=== PATIENT | female | born 1965 | race Asian ===

== ENCOUNTER → 2023-05-12 10:40 | Outpatient (REF) | payer BC, SELFPAY | LOC: HWRAD 10:40 | PROVIDERS: ATTENDING PHYSICIAN Physician Assistant Medical | DX: N89.8 Other specified noninflammatory disorders of vagina (principal); N94.9 Unspecified condition associated with female genital organs and menstrual cycle | CPT/HCPCS: 76830; 76856 ==

== ENCOUNTER → 2023-05-16 11:23 | Outpatient (REF) | payer BC, SELFPAY | LOC: RAD 11:23 | PROVIDERS: ATTENDING PHYSICIAN Physician Assistant Medical | DX: N94.89 Other specified conditions associated with female genital organs and menstrual cycle (principal) | CPT/HCPCS: 58340; 76831 ==

== ENCOUNTER → 2023-07-30 17:36 | Outpatient (REF) | payer BC, SELFPAY | LOC: CLAB 17:36 | PROVIDERS: ATTENDING PHYSICIAN Obstetrics & Gynecology | DX: N84.0 Polyp of corpus uteri (principal) | CPT/HCPCS: 88305 ==

== ENCOUNTER → 2023-12-17 19:15 | Outpatient (REF) | payer BC, SELFPAY | LOC: WDC 19:15 | PROVIDERS: ATTENDING PHYSICIAN Physician Assistant Medical | DX: Z12.31 Encounter for screening mammogram for malignant neoplasm of breast (principal) | CPT/HCPCS: 77063; 77067 ==

== ENCOUNTER → 2024-02-26 12:56 | Outpatient (REF) | payer BC, SELFPAY | LOC: WDC 12:56 | PROVIDERS: ATTENDING PHYSICIAN Physician Assistant Medical; FAMILY PHYSICIAN Physician Assistant Medical | DX: R92.2 Inconclusive mammogram (principal) | CPT/HCPCS: 76641 ==

== ENCOUNTER 2024-02-29 10:44 | Emergency (ER) | payer BC, SELFPAY ==
[2024-02-29 10:49] VITALS: BP 154/74
[2024-02-29 11:55] VITALS: BMI 25.8
--- NOTE | 2024-02-29 12:09 | ED.GENMED ---
History of Present Illness
General
Chief Complaint: Rabies
Source: patient
Exam Limitations: none
Time Seen by Provider: 02/29/24 11:32
Nursing documentation reviewed up to this point in time: agreed with
History of Present Illness
History of Present Illness:
58-year-old female presenting to the emergency department today with concerns of a bat flying in her room last night unsure of any particular injuries. Not sure if she could get bit on the finger she does have small discomfort to the area but no
visible bleeding or significant injury there. Denies additional concerns. Patient seeking rabies vaccination.
Past History
Past History
ED Past Medical History: None
ED Past Surgical History: None
Review of Systems
Review of Systems
Allergies reviewed?: Yes
All Other Systems: ROS reviewed and negative except as documented in HPI and ROS
Phy Exam
Physical Exam
Physical Exam:
GENERAL: Alert , in no apparent distress
EYE: pupils equal and reactive
NECK: Supple, no significant adenopathy.
ENT: o/p clr, mmm.
CARDIAC: Regular rate and rhythm .
LUNGS: Clear breath sounds bilaterally, no acute respiratory distress, no wheezes/rales/rhonchi
ABDOMEN: Soft, without focal tenderness, no r/g, no cvat
NEUROLOGICAL: Alert and oriented, no focal neuro deficits
SKIN: Warm and dry, skin intact.
MUSCULOSKELETAL: No edema, well perfused.
PSYCH: Normal and appropriate interaction.
Course
Orders/Labs/Results
Orders:
Orders
02/29/24 12:05
Rabies Immune Globulin/Pf [HyperRAB] 1,361 unit IM NOW STA
Rabies Vaccine (Pcec)/Pf [Rabavert Rabies Vacc W-Diluent] 2.5 unit IM .ONCE ONE
Vital Signs
Initial and Last Documented VS:
Initial Vital Signs
Temp Pulse Resp BP Pulse Ox
97.8 F 67 16 154/74 100
02/29/24 10:49 02/29/24 10:49 02/29/24 10:49 02/29/24 10:49 02/29/24 10:49
Last Documented Vital Signs
Temp Pulse Resp BP Pulse Ox
97.8 F 67 16 154/74 100
02/29/24 10:49 02/29/24 10:49 02/29/24 10:49 02/29/24 10:49 02/29/24 10:49
MDM/Problems Addressed
MDM/Problems Addressed:
58-year-old female presenting to the emergency department after seeing a bat flying in her room last night. Unsure of any particular injuries from the back. She is seeking rabies vaccination at this point. She was given a immunoglobulin and
vaccination and also follow-up. Return precautions given.
*Critical Care Note
Total Time (30-74mins, 75-104mins- exclusive of procedures): Not Applicable
ED Attending Note
-
Portions of this chart may have been created with voice recognition software.� Occasional wrong word or��sound alike� substitutions may have occurred due to the inherent limitations of voice recognition software.
Discharge Plan
Departure
Patient Disposition: Home (Routine Discharge)
Date of Disposition: 02/29/24
Time of Disposition: 12:11
Patient with high blood pressure during this ER visit?: No
Condition: Good
Covid-19: Not Applicable
Discharge Problem:
Exposure to bat without known bite
Instructions: Rabies
Prescriptions:
New
RabAvert (PF) 2.5 unit Suspension For Reconstitution
1 ml IM . DIRECTED Qty: 3 0RF
Rx Instructions:
See Rabies Vaccine Post Exposure Prophylaxis Instruction Sheet for Dosing Instructions
No Action
amoxicillin-pot clavulanate 875 MG/125 MG tablet
1 tab PO Q12 Qty: 19 0RF
Referrals:
Lourdes Clark PA-C [Family Provider] -
Stand Alone Forms: Rabies Vaccine Post Exp Dosing
Activity Restrictions/Additional Instructions:
You came to the emergency department after bat exposure. You are given the rabies vaccination and immunoglobulin. Please follow-up at the specified dates for additional vaccinations in the infusion center. Return to the emergency department for
any worsening, new or concerning symptoms.
Interventions
Interventions:
*Risk Screen - Suicide Last Done: 02/29/24 10:49
*General Assessment Last Done: 02/29/24 10:49
*Neglect/Abuse Screening Last Done: 02/29/24 10:49
*ED COVID-19 Vaccine History Last Done: 02/29/24 10:49
Discharge Date and Time
Print Language: UGANDAN
[2024-02-29] MEDS: HyperRAB 1361 UNIT IM (12:39)
[2024-02-29] MEDS: RABAVERT RABIES VACC W-DILUENT 2.5 UNIT IM (12:39)
== END 2024-02-29 12:48 | disposition home or self-care (01) ==
LOC: EMR 10:44
PROVIDERS: EMERGENCY PHYSICIAN Emergency Medicine; FAMILY PHYSICIAN Physician Assistant Medical
DX: Z20.3 Contact with and (suspected) exposure to rabies (principal); Z23 Encounter for immunization; Z29.14 Encounter for prophylactic rabies immune globulin
CPT/HCPCS: 99282; 90471; 96372; 90375; 90675

== ENCOUNTER 2024-03-08 07:41 | Outpatient (RCR) | payer BC, SELFPAY ==
[2024-03-04 07:45] VITALS: BP 122/71
[2024-03-04] MEDS: RABAVERT RABIES VACC W-DILUENT 2.5 UNIT IM (07:55)
[2024-03-08 07:55] VITALS: BP 116/61
[2024-03-08] MEDS: RABAVERT RABIES VACC W-DILUENT 2.5 UNIT IM (08:06)
== END 2024-03-09 08:21 | disposition home or self-care (01) ==
LOC: OID 07:41
PROVIDERS: ATTENDING PHYSICIAN Emergency Medicine
DX: Z20.3 Contact with and (suspected) exposure to rabies (principal); Z23 Encounter for immunization
CPT/HCPCS: 90471; 90675

== ENCOUNTER 2024-03-15 07:38 | Outpatient (RCR) | payer BC, SELFPAY ==
[2024-03-15 07:45] VITALS: BP 107/58
[2024-03-15] MEDS: RABAVERT RABIES VACC W-DILUENT 2.5 UNIT IM (07:55)
== END 2024-04-09 23:59 | disposition home or self-care (01) ==
LOC: OID 07:38
PROVIDERS: ATTENDING PHYSICIAN Emergency Medicine; FAMILY PHYSICIAN Physician Assistant Medical
DX: Z20.3 Contact with and (suspected) exposure to rabies (principal); Z23 Encounter for immunization
CPT/HCPCS: 90471; 90675

== ENCOUNTER 2024-04-06 06:15 | Day surgery (SDC) | payer BC, SELFPAY | END 2024-04-06 14:09 | disposition home or self-care (01) | LOC: GI 06:15 | PROVIDERS: ATTENDING PHYSICIAN Internal Medicine Gastroenterology | DX: Z12.11 Encounter for screening for malignant neoplasm of colon (principal); K63.5 Polyp of colon; K64.8 Other hemorrhoids; K59.00 Constipation, unspecified | CPT/HCPCS: 45380; 88305 ==

== ENCOUNTER → 2024-12-29 09:12 | Outpatient (REF) | payer BC, SELFPAY | LOC: WDC 09:12 | PROVIDERS: ATTENDING PHYSICIAN Physician Assistant Medical | DX: N64.4 Mastodynia (principal) | CPT/HCPCS: 76642; 77062; 77066 ==